=== PATIENT | male | born 1950 | race Caucasian/White ===

== ENCOUNTER → 2016-06-24 | Outpatient (CLI) | payer OTHER, BC ==
[~2016-06-24] MED LIST: ASPI-557 PO; CHOLESTEROL MED; CYCL-375 PO; IBUP-1724 PO; IOHEXOL 300 MG/ML 100ml INJECTION ONE; NORMAL SALINE 100 ML ONE; OXYC-541 PO; SALINE FLUSH 10ml SYRINGE ONE
[2016-06-24 09:32] LABS: CREATININE 1.2 MG/DL (0.8-1.5)
--- NOTE | 2016-06-24 10:39 | DI ---
Indication: ITS.REASON: HEMATURIA PROCEDURE: CT RENAL W/WO CONTRAST: Encounter: Initial Comparison: None Technique: Axial CT images were performed through the abdomen and pelvis before and after the administration of intravenous contrast. Delayed postcontrast images were also performed. Coronal and sagittal 2-dimensional reformats. Automated Exposure Control and Iterative Reconstruction dose reducing techniques were utilized. Contrast: Omnipaque 300 100 mL Findings: The lung bases are grossly clear. Noncontrast images show fatty infiltration of the liver but no renal stone disease. No ureteral stones or bladder stones. Postcontrast images show normal enhancement of the liver. No bile duct dilatation. Small gallstone in the gallbladder neck. The spleen, pancreas and adrenal glands are normal. The right kidney is normal without enhancing mass or hydronephrosis. Small 1.2 cm cyst in the medial superior aspect of the left kidney. No enhancing left renal mass or hydronephrosis. No abdominal or pelvic lymphadenopathy. Scattered arterial atherosclerotic plaque. Bladder is decompressed without focal wall thickening or abnormal enhancement. Prostate and rectum are unremarkable. No free fluid. No evidence of a bowel obstruction. Prior appendectomy. Bone windows show degenerative and postoperative changes in the lumbar spine. Prominent thoracic osteophytes as well. Delayed postcontrast imaging shows normal excretion of contrast by both renal collecting systems. No filling defects or mass identified. The ureters are normal in course and caliber. Urinary bladder appears normal. Impression: 1. Negative exam. No clear etiology for the patient's hematuria. 2. Hepatic steatosis. 3. Cholelithiasis. .
== END ==
LOC: IMA 08:32
PROVIDERS: ATTEND Urology
DX: R31.9 Hematuria, unspecified (principal); K76.0 Fatty (change of) liver, not elsewhere classified; K80.20 Calculus of gallbladder without cholecystitis without obstruction
CPT/HCPCS: 36415; 82565; 84520